=== PATIENT | female | born 1985 | race African-American/Black ===

== ENCOUNTER 2017-04-12 16:08 | Emergency (ER) | payer OTHER ==
[~2017-04-12] VITALS: Ht 165.1 cm; Wt 73.0 kg
[2017-04-13] MEDS ORDERED: ONDANSETRON HCL 4MG/2ML VIAL IV STA (03:19)
[2017-04-13] MEDS ORDERED: KETOROLAC 30MG/ML VIAL IV STA (03:19)
[2017-04-13] MEDS ORDERED: SODIUM CHLORIDE 0.9% 1,000 ML IV ONE (03:19)
[2017-04-13] MEDS ORDERED: FAMOTIDINE 20MG/2ML VIAL IV STA (03:19)
[2017-04-13 03:37] LABS: BASOPHILS % 0.7 % (0.0-2.0); EOSINOPHILS % 1.2 % (0.0-5.0); HEMATOCRIT. 34.5 % (36.0-48.0); HEMOGLOBIN. 11.2 g/dL (12.0-16.0); LYMPHOCYTES % 24.7 % (20.0-50.0); MEAN CORPUSCULAR HEMOGLOBIN 26.9 pg (28.0-32.0); MEAN CORPUSCULAR VOLUME 82.8 fL (81.0-99.0); MEAN PLATELET VOLUME 8.7 fl (7.4-10.4); MONOCYTES % 8.3 % (2.0-8.0); NEUTROPHILS % 65.1 % (40.0-76.0); PLATELET 313 x1000/uL (130-400); RED BLOOD CELL COUNT 4.17 mill/uL (4.2-5.4); RED CELL DISTRIBUTION WIDTH 14.9 % (11.6-14.6)
[2017-04-13 03:43] LABS: CLARITY URINE CLEAR (CLEAR); COLOR URINE YELLOW (YELLOW); KETONES URINE NEGATIVE (NEGATIVE); LEUKOCYTE ESTERASE URINE TRACE (NEGATIVE); NITRITE URINE NEGATIVE (NEGATIVE); OCCULT BLOOD URINE NEGATIVE (NEGATIVE); PH URINE 7.5 (4.5-8.0); PROTEIN URINE NEGATIVE (NEGATIVE); SPECIFIC GRAVITY URINE 1.009 (1.005-1.030)
[2017-04-13 03:45] LABS: PROTHROMBIN TIME 10.6 sec (9.4-11.6)
[2017-04-13 03:53] LABS: CHLORIDE 105 mEq/L (98-107); ETHANOL BLOOD < 10 mg/dL
[2017-04-13 04:14] LABS: *AMPHETAMINES SCREEN URINE NEGATIVE (NEGATIVE); *BARBITURATES SCREEN URINE NEGATIVE (NEGATIVE); *BENZODIAZEPINES SCREEN URINE NEGATIVE (NEGATIVE); *COCAINE SCREEN URINE NEGATIVE (NEGATIVE); METHADONE URINE SCREEN NEGATIVE (NEGATIVE); OPIATES URINE SCREEN NEGATIVE (NEGATIVE); PHENCYCLIDINE URINE SCREEN NEGATIVE (NEGATIVE)
[2017-04-13] MEDS ORDERED: POTASSIUM CHLORIDE 20MEQ/PACKET PO NR (04:45)
[2017-04-13 05:25] LABS: CANNABINOID URINE SCREEN PRESUMTIVE POSITIVE (NEGATIVE)
[2017-04-13] MEDS ORDERED: POTASSIUM CHLORIDE 20MEQ TABLET SR PO NR (05:26)
[2017-04-13 06:57] VITALS: BP 122/75
== END 2017-04-13 09:32 | disposition home or self-care (01) ==
LOC: ER 18:48
DX: N20.0 Calculus of kidney (principal); E87.6 Hypokalemia; F17.200 Nicotine dependence, unspecified, uncomplicated; F12.10 Cannabis abuse, uncomplicated; R79.1 Abnormal coagulation profile
CPT/HCPCS: 36415; 76700; 80053; 80305; 81001; 81025; 83690; 83735; 85025; 85610; 96361; 96374; 96375; 99285; G0482; J1885; J2405; J3490; Z7610; J7030

== ENCOUNTER 2017-04-16 02:20 | Emergency (ER) | payer OTHER ==
[~2017-04-16] VITALS: Ht 165.1 cm; Wt 73.0 kg
[2017-04-16 03:54] VITALS: BP 112/88
== END 2017-04-16 08:54 | disposition left against medical advice (07) ==
LOC: ER 02:20
DX: Z53.21 Procedure and treatment not carried out due to patient leaving prior to being seen by health care provider (principal)

== ENCOUNTER 2019-11-28 01:15 | Emergency (ER) | payer OTHER ==
[~2019-11-28] VITALS: Ht 165.1 cm; Wt 77.0 kg
[2019-11-28] MEDS ORDERED: ACETAMINOPHEN 325MG TABLET PO ONE (01:45)
[2019-11-28 03:32] VITALS: BP 128/74
== END 2019-11-28 04:08 | disposition home or self-care (01) ==
LOC: ER 01:15
DX: S09.8XXA Other specified injuries of head, initial encounter (principal); W22.8XXA Striking against or struck by other objects, initial encounter; Y93.89 Activity, other specified; Y92.89 Other specified places as the place of occurrence of the external cause; Y99.8 Other external cause status; F12.10 Cannabis abuse, uncomplicated
CPT/HCPCS: 81025; 99284